=== PATIENT | male | born 1990 | race African-American/Black ===

== ENCOUNTER 2017-08-21 14:58 | Emergency (ER) | payer SELFPAY ==
[~2017-08-21] VITALS: Ht 180.3 cm; Wt 83.9 kg
[2017-08-21 15:32] VITALS: BP 117/77
[2017-08-21] MEDS ORDERED: TRAMADOL HCL50 MG ORAL (16:41)
[2017-08-21 16:48] VITALS: BP 117/77
--- NOTE | 2017-08-21 17:01 | Emergency Room Report ---
History of Present Illness General Chief Complaint: Pain Source: Patient Present Illness HPI 27-year-old male presents ED complaining of right calf pain. Started yesterday. Denies trauma. Pain is throbbing, 7 out of 10, nonradiating. Patient states he has history of DVT. Was on Coumadin previously. Not on anything at this time. Denies chest pain or shortness of breath. All other aggravating relieving factors. Denies any other associated symptoms Allergies: Coded Allergies: No Known Allergies (Unverified , 08/21/17) Patient History Past Medical History: other - DVT Past Surgical History: none Pertinent Family History: none Social History: Denies: smoking, alcohol use, drug use Immunizations: UTD Reviewed Nursing Documentation: PMH: Agreed; PSxH: Agreed Nursing Documentation-PMH Past Medical History: No History, Except For Hx Cardiac Problems: No - HIV + Hx Asthma: Yes - PNA DVT Review of Systems All Other Systems: negative except mentioned in HPI Physical Exam Vital Signs Date Time Temp Pulse Resp B/P (MAP) Pulse Ox O2 Delivery O2 Flow Rate FiO2 08/21/17 15:21 98.4 92 14 117/77 100 Room Air 98.4 Sp02 EP Interpretation: reviewed, normal General Appearance: no apparent distress, alert, GCS 15, non-toxic Head: normocephalic Eyes: bilateral eye normal inspection, bilateral eye PERRL ENT: normal ENT inspection Neck: normal inspection Respiratory: normal inspection Cardiovascular #1: normal inspection Gastrointestinal: normal inspection Rectal: deferred Genitourinary: no CVA tenderness Musculoskeletal: calf tenderness - right Neurologic: alert, oriented x3, responsive, motor strength/tone normal, sensory intact, speech normal Psychiatric: normal inspection Skin: normal inspection Lymphatic: normal inspection Medical Decision Making Diagnostic Impression: Primary Impression: History of DVT (deep vein thrombosis) Additional Impression: Calf pain Qualified Codes: M79.661 - Pain in right lower leg ER Course Hospital Course 27-year-old male present ED complaining of R calf pain. h/o DVT Differential diagnoses include: DVT, cellulitis, contusion, abscess Clinical course Patient placed on stretcher after initial history and physical I ordered DVT US Doppler ultrasound shows no evidence of DVT discussed findings with patient. Reassurance given. I. I feel this is a highly complex case requiring extensive working including EKG/Rhythm strip, Xray/CT/US, Blood/urine lab work, repeat exams while in ED, and administration of strong opiates/narcotics for pain control, admission to hospital or close patient follow up. Diagnosis - calf pain, history of DVT Stable and discharged to home with Rx Tramadol. Followup with PMD. Return to ED if symptoms recur or worsen Last Vital Signs Date Time Temp Pulse Resp B/P (MAP) Pulse Ox O2 Delivery O2 Flow Rate FiO2 08/21/17 16:48 98.4 74 14 117/77 100 Room Air 98.4 Status: improved Disposition: HOME, SELF-CARE Condition: Stable Scripts Tramadol Hcl* (ULTRAM*) 50 Mg Tablet 50 MG ORAL Q6H PRN for For Pain, #20 TAB 0 Refills Prov: Greg Pino MD 08/21/17 Referrals: NOT CHOSEN IPA/,REFERRING (PCP) Patient Instructions: Cryotherapy, [id number] Greg Pino MD Aug 21, 2017 17:01
== END 2017-08-21 16:51 | disposition home or self-care (01) ==
LOC: EMR 16:51
DX: M79.661 Pain in right lower leg (principal); Z86.718 Personal history of other venous thrombosis and embolism
CPT/HCPCS: 93971; 99283